=== PATIENT | male | born 1985 | race African-American/Black ===

== ENCOUNTER 2017-05-29 03:26 | Emergency (ER) | payer MEDICAID ==
[~2017-05-29] VITALS: Ht 177.8 cm; Wt 68.5 kg
[2017-05-29] MEDS ORDERED: TETRACAINE 0.5% OPHTH DROPS 4ML OP ONE (04:45)
[2017-05-29] MEDS ORDERED: FLUORESCEIN SODIUM 1MG/STRIP OP ONE (04:45)
[2017-05-29 05:24] VITALS: BP 123/88
== END 2017-05-29 05:23 | disposition home or self-care (01) ==
LOC: ER 03:26
DX: H10.029 Other mucopurulent conjunctivitis, unspecified eye (principal)
CPT/HCPCS: 99283

== ENCOUNTER 2017-07-08 22:24 | Emergency (ER) | payer MEDICAID ==
[~2017-07-08] VITALS: Ht 177.8 cm; Wt 73.0 kg
[2017-07-08 23:24] VITALS: BP 139/76
== END 2017-07-09 00:05 | disposition home or self-care (01) ==
LOC: ER 22:24
DX: T78.40XA Allergy, unspecified, initial encounter (principal); F17.200 Nicotine dependence, unspecified, uncomplicated; F12.10 Cannabis abuse, uncomplicated; Z91.010 Allergy to peanuts
CPT/HCPCS: 99281

== ENCOUNTER 2018-02-16 15:27 | Emergency (ER) | payer MEDICAID | END 2018-02-16 16:53 | disposition left against medical advice (07) | LOC: ER 15:27 | DX: Z53.21 Procedure and treatment not carried out due to patient leaving prior to being seen by health care provider (principal) ==

== ENCOUNTER 2018-02-16 17:08 | Emergency (ER) | payer MEDICAID ==
[~2018-02-16] VITALS: Ht 177.8 cm; Wt 68.1 kg
[2018-02-16 17:56] VITALS: BP 124/81
[2018-02-16] MEDS ORDERED: TETANUS, DIPHTHERIA, PERTUSSIS VAC/PF 0.5ML (>7YR OLD) IM ONE (19:00)
== END 2018-02-16 19:11 | disposition home or self-care (01) ==
LOC: ER 17:08
DX: S60.561A Insect bite (nonvenomous) of right hand, initial encounter (principal); L03.113 Cellulitis of right upper limb; F12.10 Cannabis abuse, uncomplicated; Z91.010 Allergy to peanuts; W57.XXXA Bitten or stung by nonvenomous insect and other nonvenomous arthropods, initial encounter; Y93.89 Activity, other specified; Y92.018 Other place in single-family (private) house as the place of occurrence of the external cause
CPT/HCPCS: 90471; 90715; 99283; Z7610

== ENCOUNTER 2018-02-19 20:25 | Emergency (ER) | payer MEDICAID ==
[~2018-02-19] VITALS: Ht 170.2 cm; Wt 66.0 kg
[2018-02-19 20:36] VITALS: BP 122/74
== END 2018-02-19 20:45 | disposition left against medical advice (07) ==
LOC: ER 20:38
DX: H57.8 Other specified disorders of eye and adnexa (principal); Z53.21 Procedure and treatment not carried out due to patient leaving prior to being seen by health care provider

== ENCOUNTER 2018-02-19 21:32 | Emergency (ER) | payer MEDICAID | END 2018-02-19 22:30 | disposition left against medical advice (07) | LOC: ER 21:32 | DX: R06.89 Other abnormalities of breathing (principal); Z53.21 Procedure and treatment not carried out due to patient leaving prior to being seen by health care provider ==

== ENCOUNTER 2018-04-20 20:16 | Emergency (ER) | payer MEDICAID ==
[~2018-04-20] VITALS: Ht 177.8 cm; Wt 68.0 kg
[2018-04-20] MEDS ORDERED: BACITRACIN ZINC OINT UDPKT TOP ONE (21:30)
[2018-04-20] MEDS ORDERED: IBUPROFEN 600MG TABLET PO ONE (21:30)
[2018-04-20 23:14] VITALS: BP 110/65
== END 2018-04-20 22:38 | disposition home or self-care (01) ==
LOC: ER 20:16
DX: F12.10 Cannabis abuse, uncomplicated (principal); L03.116 Cellulitis of left lower limb; B35.3 Tinea pedis
CPT/HCPCS: 73630; 99284

== ENCOUNTER 2018-05-28 00:22 | Emergency (ER) | payer MEDICAID ==
[~2018-05-28] VITALS: Ht 177.8 cm; Wt 68.0 kg
[2018-05-28 00:24] VITALS: BP 119/79
[2018-05-28] MEDS ORDERED: AMOXICILLIN/POTASSIUM CLAVULANATE 875/125MG TAB PO ONE (03:45)
[2018-05-28] MEDS ORDERED: SULFAMETHOXAZOLE/TRIMETHOPRIM 800/160MG TABLET PO ONE (03:45)
== END 2018-05-28 03:56 | disposition home or self-care (01) ==
LOC: ER 00:22
DX: S41.151A Open bite of right upper arm, initial encounter (principal); L97.529 Non-pressure chronic ulcer of other part of left foot with unspecified severity; F12.10 Cannabis abuse, uncomplicated; W50.3XXA Accidental bite by another person, initial encounter; Y93.89 Activity, other specified; Y92.89 Other specified places as the place of occurrence of the external cause; Y99.8 Other external cause status
CPT/HCPCS: 82962; 99281; 99282

== ENCOUNTER 2021-02-16 00:16 | Emergency (ER) | payer MEDICAID ==
[~2021-02-16] VITALS: Ht 177.8 cm; Wt 71.0 kg
[~2021-02-16 00:16] MED LIST: CICL6.6S5 TP
[2021-02-16] MEDS ORDERED: NALO4SPR BOTHNSTRLS (03:25)
[2021-02-16] MEDS ORDERED: ONDANSETRON HCL 4MG/2ML INJ IV STA (04:17)
[2021-02-16] MEDS ORDERED: SODIUM CHLORIDE 0.9% 1,000 ML IV ONE (04:30)
[2021-02-16 05:02] LABS: BASOPHILS % 0.1 % (0.0-2.0); EOSINOPHILS % 0.1 % (0.0-5.0); LYMPHOCYTES % 10.7 % (20.0-50.0); MEAN CORPUSCULAR HEMOGLOBIN 29.1 pg (28.0-32.0); MEAN CORPUSCULAR VOLUME 86.8 fL (80.0-94.0); MEAN PLATELET VOLUME 9.2 fl (7.4-10.4); MONOCYTES % 7.5 % (2.0-8.0); NEUTROPHILS % 81.6 % (40.0-76.0); PLATELET 265 x1000/uL (130-400); RED BLOOD CELL COUNT 4.49 mill/uL (4.7-6.1); RED CELL DISTRIBUTION WIDTH 14.3 % (11.6-14.6)
[2021-02-16 05:08] LABS: CHLORIDE 106 mEq/L (98-107)
[2021-02-16 05:12] LABS: CANNABINOID URINE SCREEN PRESUMTIVE POSITIVE (NEGATIVE)
[2021-02-16 05:13] LABS: *AMPHETAMINES SCREEN URINE PRESUMTIVE POSITIVE (NEGATIVE); *BARBITURATES SCREEN URINE NEGATIVE (NEGATIVE); *BENZODIAZEPINES SCREEN URINE NEGATIVE (NEGATIVE); *COCAINE SCREEN URINE NEGATIVE (NEGATIVE); METHADONE URINE SCREEN NEGATIVE (NEGATIVE); OPIATES URINE SCREEN NEGATIVE (NEGATIVE)
[2021-02-16 05:13] LABS: ETHANOL BLOOD < 10 mg/dL
[2021-02-16 05:15] LABS: PHENCYCLIDINE URINE SCREEN NEGATIVE (NEGATIVE)
[2021-02-16 06:54] VITALS: BP 95/53
== END 2021-02-16 07:00 | disposition home or self-care (01) ==
LOC: ER 00:16
DX: T40.7X1A Poisoning by cannabis (derivatives), accidental (unintentional), initial encounter (principal); R53.1 Weakness; R06.09 Other forms of dyspnea; R00.0 Tachycardia, unspecified; R00.8 Other abnormalities of heart beat; R94.31 Abnormal electrocardiogram [ECG] [EKG]; Y92.89 Other specified places as the place of occurrence of the external cause; F12.129 Cannabis abuse with intoxication, unspecified
CPT/HCPCS: 36415; 80053; 80305; 80307; 80320; 80329; 82962; 85025; 93005; 96361; 96374; 99285; J2405; J7030; G0480